=== PATIENT | male | born 1935 | race Two or more races ===

== ENCOUNTER 2017-10-02 08:26 | Day surgery (SDC) | payer OTHER ==
[~2017-10-02 08:26] MED LIST: CRESTOR10 MG PO; LISINOPRIL20 MG PO; SYNTHROID112 MCG PO; TENORMIN50 MG PO
== END 2017-10-02 16:50 | disposition home or self-care (01) ==
LOC: CIR.AMB 08:26
DX: C34.90 Malignant neoplasm of unspecified part of unspecified bronchus or lung (principal)
CPT/HCPCS: 36561; C1751